=== PATIENT | male | born 1990 | race Caucasian/White ===

== ENCOUNTER 2022-07-11 05:05 | Emergency (ER) | payer SELFPAY ==
[~2022-07-11] VITALS: Ht 170.2 cm; Wt 80.0 kg
[2022-07-11 05:28] VITALS: BP 129/79
[2022-07-11 08:09] LABS: EOSINOPHILS % 0.5 % (0.0-5.0); HEMATOCRIT. 42.5 % (42.0-52.0); HEMOGLOBIN. 14.7 g/dL (14.0-18.0); LYMPHOCYTES % 25.7 % (20.0-50.0); MEAN CORPUSCULAR HEMOGLOBIN 29.7 pg (28.0-32.0); MEAN CORPUSCULAR VOLUME 85.7 fL (80.0-94.0); MONOCYTES % 6.6 % (2.0-8.0); NEUTROPHILS % 66.2 % (40.0-76.0); PLATELET 348 x1000/uL (130-400); RED BLOOD CELL COUNT 4.96 mill/uL (4.7-6.1); RED CELL DISTRIBUTION WIDTH 13.5 % (11.6-14.6)
[2022-07-11 08:18] LABS: PROTHROMBIN TIME 10.7 sec (9.6-11.0)
[2022-07-11 08:26] LABS: CHLORIDE 107 mEq/L (98-107)
[2022-07-11 09:13] LABS: CLARITY URINE CLEAR (CLEAR); COLOR URINE YELLOW (YELLOW); KETONES URINE TRACE (NEGATIVE); LEUKOCYTE ESTERASE URINE NEGATIVE (NEGATIVE); NITRITE URINE NEGATIVE (NEGATIVE); OCCULT BLOOD URINE 1+ (NEGATIVE); PH URINE 6.5 (4.5-8.0); PROTEIN URINE 2+ (NEGATIVE); SPECIFIC GRAVITY URINE 1.008 (1.005-1.030); UROBILINOGEN URINE 0.2 E.U./dL (0.2-1.0)
[2022-07-11] MEDS ORDERED: ONDA4TAB50 PO (09:58)
[2022-07-11] MEDS ORDERED: TOPUD PO (09:58)
== END 2022-07-11 10:13 | disposition home or self-care (01) ==
LOC: ER 05:05
DX: R10.9 Unspecified abdominal pain (principal); R11.2 Nausea with vomiting, unspecified; R19.7 Diarrhea, unspecified
CPT/HCPCS: 36415; 80053; 81003; 85025; 99283